=== PATIENT | male | born 1970 | race American Indian/Alaskan Native ===

== ENCOUNTER 2016-07-31 11:19 | Emergency (ER) | payer OTHER ==
[2016-07-31] MEDS ORDERED: PERCOCET 5/325 PO ONE (11:55)
--- NOTE | 2016-07-31 11:58 | Emergency Department Report ---
ED Back Pain/Injury HPI - General Chief Complaint: Back Pain/Injury Stated Complaint: BACK PAIN Time Seen by Provider: 07/31/16 11:46 Source: patient Limitations: No Limitations - History of Present Illness Initial Comments: Pt seen last week after fall. Reports back pain has persisted, though he also has a chronic history and has been out of pain meds, outside of what was given to him last time he was here. Reports pain has been worse since the fall and radiates to both legs. No numbness. No bowel/bladder dysfunction. Reports when pain is at its most intense, he feels nauseated. No dysuria. No fevers or abdominal pain. Denies IVDU. MD Complaint: back pain -: Gradual, year(s) Similar Symptoms Previously: Yes Radiation: left leg, right leg Severity: moderate Severity scale (0 -10): 7 Consistency: constant Improves With: none Worsens With: none Context: fall Associated Symptoms: denies other symptoms - Related Data Previous Rx's Medication Instructions Recorded Last Taken Type Losartan [Cozaar] 50 mg PO QDAY #30 tablet 07/19/16 Unknown Rx traZODone [Desyrel] 50 mg PO QHS PRN #15 tab 07/19/16 Unknown Rx Tizanidine HCl [tiZANidine] 4 mg PO TID #15 tablet 07/31/16 Unknown Rx traMADol [Ultram 50 MG tab] 50 mg PO Q6HR PRN #20 tablet 07/31/16 Unknown Rx Allergies Allergy/AdvReac Type Severity Reaction Status Date / Time No Known Allergies Allergy Unverified 07/19/16 10:47 ED Review of Systems ROS: Stated complaint: BACK PAIN Other details as noted in HPI Constitutional: denies: chills, fever Eyes: denies: eye pain, eye discharge, vision change ENT: denies: ear pain, throat pain Respiratory: denies: cough, shortness of breath, wheezing Cardiovascular: denies: chest pain, palpitations Endocrine: no symptoms reported Gastrointestinal: denies: abdominal pain, nausea, diarrhea Genitourinary: denies: urgency, dysuria Musculoskeletal: back pain. denies: joint swelling, arthralgia Skin: denies: rash, lesions Neurological: denies: headache, weakness, paresthesias Psychiatric: denies: anxiety, depression Hematological/Lymphatic: denies: easy bleeding, easy bruising ED Past Medical Hx - Past Medical History CHRONIC BACK PAIN Family history: no significant family history ED Back Pain Physical Exam - Exam General: Vital signs noted. No distress. Alert and acting appropriately. Heart RRR, Lungs CTAB. Back/Abdomen: Yes Perilumbar Tenderness, Yes Sacroiliac Tenderness, Yes Straight Leg Raise Pain, No Abdominal Tenderness, No Perithoracic Tenderness, No Flank Tenderness Neuro: Yes Normal Sensation, Yes Normal DTR's, Yes Normal Gait, No Motor Weakness ED Course Vital Signs 07/31/16 11:39 Temperature 98.7 F Pulse Rate 109 H Respiratory 18 Rate Blood Pressure 160/109 O2 Sat by Pulse 100 Oximetry - Reevaluation(s) Reevaluation #1: 07/31/16 12:43 NAD, stable for d/c. ED Medical Decision Making - Radiology Data Radiology results: image reviewed interpreted by me: grace - Medical Decision Making Feels better with meds. He is working on follow up. Discussed BP med compliance. He has enough at home. - Differential Diagnosis strain, fx, sciatica, chronic pain Critical care attestation.: If time is entered above; I have spent that time in minutes in the direct care of this critically ill patient, excluding procedure time. ED Disposition Clinical Impression: Lumbar radiculopathy, chronic, Acute exacerbation of chronic low back pain Disposition: DISCHARGED TO HOME OR SELFCARE Is pt being admited?: No Condition: Good Instructions: Sciatica (ED) Prescriptions: Tizanidine HCl [tiZANidine] 4 mg PO TID #15 tablet traMADol [Ultram 50 MG tab] 50 mg PO Q6HR PRN #20 tablet PRN Reason: Pain Referrals: PRIMARY CAREMD [Primary Care Provider] - 3-5 Days KEITH DARBY MD [Staff Physician] - 3-5 Days Time of Disposition: 12:50
[2016-07-31 13:16] VITALS: BP 137/93
--- NOTE | 2016-07-31 14:40 | XRay Report ---
LUMBOSACRAL SPINE, 3 VIEWS: History: Back pain Findings: The vertebral bodies, disk spaces and posterior elements are intact. No compression deformity or malalignment. The SI joints are symmetric and unremarkable. Impression: 1. No evidence for acute injury to the lumbar spine.
== END 2016-07-31 13:16 | disposition home or self-care (01) ==
LOC: ED 11:19
DX: M54.16 Radiculopathy, lumbar region (principal); M54.5 Low back pain; G89.29 Other chronic pain
CPT/HCPCS: 72100; 99283

== ENCOUNTER 2016-09-15 22:10 | Emergency (ER) | payer SELFPAY ==
[2016-09-15 23:36] LABS: Basophils % (Auto) 0.7 % (0.0-1.8); Eosinophils % (Auto) 1.8 % (0.0-4.3); Hematocrit 41.9 % (35.5-45.6); Mean Corpuscular HGB Conc 34 % (32-34); Mean Corpuscular Hemoglobin 29 pg (28-32); Mean Corpuscular Volume 86 fl (84-94); Platelet Count 237 K/mm3 (140-440); Red Blood Count 4.89 M/mm3 (3.65-5.03); Red Cell Distribution Width 13.3 % (13.2-15.2); White Blood Count 7.7 K/mm3 (4.5-11.0)
[2016-09-15 23:40] LABS: Alanine Aminotransferase 13 units/L (7-56); Albumin 4.1 g/dL (3.9-5); Albumin/Globulin Ratio 1.4 %; Alkaline Phosphatase 79 units/L (35-129); Anion Gap 18 mmol/L; Bilirubin,Total 0.3 mg/dL (0.1-1.2); Blood Urea Nitrogen 12 mg/dL (9-20); Calcium 9.5 mg/dL (8.4-10.2); Carbon Dioxide 27 mmol/L (22-30); Chloride 93.9 mmol/L (98-107); Glucose 392 mg/dL (75-100); Potassium 3.5 mmol/L (3.6-5.0); Sodium 135 mmol/L (137-145); Total Protein 7.1 g/dL (6.3-8.2)
[2016-09-15 23:46] LABS: INR 0.99 (0.87-1.13)
[2016-09-16] MEDS ORDERED: CLEOCIN 600 MG/50 mL 600 MG/50 ML BAG IV ONE (04:08)
[2016-09-16] MEDS ORDERED: NACL 0.9% 1000 ML 1,000 ML IV ONE (04:08)
--- NOTE | 2016-09-16 04:10 | Emergency Department Report ---
ED General Adult HPI - General Chief complaint: Wound/Laceration Stated complaint: RT FOOT INJURY Time Seen by Provider: 09/16/16 04:00 Source: patient Mode of arrival: Ambulatory Limitations: No Limitations - History of Present Illness Initial comments: This is a 46-year-old gentleman with a history of diabetes. His right great toe began causing him some discomfort today. He noticed that there was some slight drainage from it earlier in the day. He felt there was some swelling around it as well. He does have 5 Provigil and for this due to his diabetic condition. He does report mild neuropathy as well. He denies anything else going on currently that he would think would be an etiology for her fever. Denies sore throat no cough. Patient actually did not have fevers today but he felt some malaise. He actually went home from work early due to not feeling well in general. -: Gradual Severity scale (0 -10): 3 Quality: dull Improves with: none Worsens with: none - Related Data Previous Rx's Medication Instructions Recorded Last Taken Type Losartan [Cozaar] 50 mg PO QDAY #30 tablet 07/19/16 Unknown Rx traZODone [Desyrel] 50 mg PO QHS PRN #15 tab 07/19/16 Unknown Rx Tizanidine HCl [tiZANidine] 4 mg PO TID #15 tablet 07/31/16 Unknown Rx traMADol [Ultram 50 MG tab] 50 mg PO Q6HR PRN #20 tablet 07/31/16 Unknown Rx Clindamycin [Clindamycin CAP] 300 mg PO Q6H #40 capsule 09/16/16 Unknown Rx Allergies Allergy/AdvReac Type Severity Reaction Status Date / Time No Known Allergies Allergy Unverified 07/19/16 10:47 ED Review of Systems ROS: Stated complaint: RT FOOT INJURY Other details as noted in HPI Comment: All other systems reviewed and negative Constitutional: malaise. denies: chills, fever Eyes: denies: eye pain, eye discharge, vision change ENT: denies: ear pain, throat pain Respiratory: denies: cough, shortness of breath, wheezing Cardiovascular: denies: chest pain, palpitations Endocrine: no symptoms reported Gastrointestinal: denies: abdominal pain, nausea, diarrhea Genitourinary: denies: urgency, dysuria Musculoskeletal: other (right great toe tenderness.). denies: back pain, joint swelling, arthralgia Skin: denies: rash, lesions Neurological: denies: headache, weakness, paresthesias Psychiatric: denies: anxiety, depression Hematological/Lymphatic: denies: easy bleeding, easy bruising ED Past Medical Hx - Past Medical History Hx Diabetes: Yes Additional medical history: CHRONIC BACK PAIN - Surgical History Additional Surgical History: ACL BILATERALLY. RIGHT ELBOW - Social History Smoking Status: Never Smoker Substance Use Type: None - Medications Home Medications: Home Medications Medication Instructions Recorded Confirmed Last Taken Type Losartan [Cozaar] 50 mg PO QDAY #30 tablet 07/19/16 Unknown Rx traZODone [Desyrel] 50 mg PO QHS PRN #15 tab 07/19/16 Unknown Rx Tizanidine HCl [tiZANidine] 4 mg PO TID #15 tablet 07/31/16 Unknown Rx traMADol [Ultram 50 MG tab] 50 mg PO Q6HR PRN #20 tablet 07/31/16 Unknown Rx Clindamycin [Clindamycin CAP] 300 mg PO Q6H #40 capsule 09/16/16 Unknown Rx ED Physical Exam - General Limitations: No Limitations General appearance: alert, in no apparent distress - Head Head exam: Present: atraumatic, normocephalic - Eye Eye exam: Present: normal appearance, EOMI. Absent: scleral icterus - ENT ENT exam: Present: normal exam, normal orophraynx, mucous membranes moist - Neck Neck exam: Present: normal inspection, full ROM. Absent: tenderness, lymphadenopathy - Respiratory Respiratory exam: Present: normal lung sounds bilaterally. Absent: respiratory distress, wheezes, rales - Cardiovascular Cardiovascular Exam: Present: regular rate, normal rhythm. Absent: systolic murmur, diastolic murmur, rubs, gallop - GI/Abdominal GI/Abdominal exam: Present: soft, normal bowel sounds. Absent: distended, tenderness - Rectal Rectal exam: Present: deferred - Extremities Exam Extremities exam: Present: other (right great toe with partial removal of the nail from the bed. There is some mild erythema at nail fold on the medial aspect as well as at the base. Minimal fluctuance is noted. Some mild ecchymosis is noted as well. There is mild edema appreciated in the in the great toe region and on the dorsum of the proximal aspect of the foot as well. No lymphangitis is noted.) - Back Exam Back exam: Present: normal inspection. Absent: tenderness, CVA tenderness (R), CVA tenderness (L) - Neurological Exam Neurological exam: Present: alert, oriented X3, normal gait - Psychiatric Psychiatric exam: Present: normal affect, normal mood - Skin Skin exam: Present: warm, dry, intact, normal color. Absent: rash ED Course Vital Signs 09/15/16 22:42 Temperature 99.9 F H Pulse Rate 110 H Respiratory 20 Rate Blood Pressure 175/115 O2 Sat by Pulse 100 Oximetry - Reevaluation(s) Reevaluation #1: 09/16/16 05:14 Temperature 99.9. Patient does not feel feverish per se. He does feel a little bit off however. I suspect there is probably multifactorial with the sugars being elevated as well as the mild infection. Given his diabetic state and will be aggressive with therapy. He was given initial dose of IV antibiotics here. I will write for oral Ativan for home. I feel he is appropriate for home antibiotics. And suppresses see his lactate elevated as much as that he has. He does not clinically appear ill in any fashion. Given IV fluids here as well as insulin to help with his sugars. I did consider removal of the nail. I did not feel this time it would be beneficial to the recovery of this patient however. I am calling him paronychia but this is probably not they actually exact diagnosis. It is more of a cellulitis at the nail margins at this point. Patient is very invested in wanting to be aggressive with this and I'm sure he will be very vigilant in observing for any concerns. He does have a follow-up doctor. I did encourage him to return if he has any acute worsening starts having worsening erythema fever or lymphangitis signs. ED Medical Decision Making - Lab Data Result diagrams: 09/15/16 23:02 09/15/16 23:02 Critical care attestation.: If time is entered above; I have spent that time in minutes in the direct care of this critically ill patient, excluding procedure time. ED Disposition Clinical Impression: Paronychia of great toe, right, Hyperglycemia due to type 2 diabetes mellitus Disposition: DISCHARGED TO HOME OR SELFCARE Is pt being admited?: No Does the pt Need Aspirin: No Condition: Stable Instructions: Paronychia (ED), Diabetes Mellitus Type 2 in Adults (ED) Additional Instructions: He may continue with warm soaks. Practice good wound care. Keep toe protected. Return if you notice increased redness or worsening swelling. Return if you have fevers. Prescriptions: Clindamycin [Clindamycin CAP] 300 mg PO Q6H #40 capsule Referrals: PRIMARY CARE, [Primary Care Provider] - 3-5 Days Forms: Work/School Release Form(ED) Time of Disposition: 04:11
[2016-09-16] MEDS ORDERED: TYLENOL PO ONE (04:12)
[2016-09-16 05:53] VITALS: BP 152/76
== END 2016-09-16 05:52 | disposition home or self-care (01) ==
LOC: ED 22:10
DX: L03.031 Cellulitis of right toe (principal); E11.65 Type 2 diabetes mellitus with hyperglycemia; G89.29 Other chronic pain
CPT/HCPCS: 36415; 80053; 82140; 82805; 85025; 85610; 87040; 96365; 96372; 99283; J7030; J1815